=== PATIENT | female | born 1985 | race Caucasian/White ===

== ENCOUNTER 2022-07-02 15:06 | Outpatient (CLI) | payer OTHER | END 2022-07-02 16:35 | disposition home or self-care (01) | LOC: NST 15:06 | PROVIDERS: ATTEND Obstetrics & Gynecology | DX: Z34.83 Encounter for supervision of other normal pregnancy, third trimester (principal) ==

== ENCOUNTER 2022-07-20 11:15 | Inpatient (IN) | payer OTHER ==
[~2022-07-20] VITALS: Ht 152.4 cm; Wt 68.9 kg
[2022-07-20] MEDS ORDERED: LOVENOX40 MG/0.4 SUBCUTANEO (13:01)
[2022-07-20] MEDS ORDERED: OBTREX DHA COM1 EACH PO (13:02)
== END 2022-07-26 16:12 | disposition home or self-care (01) | DRG 788 ==
LOC: EDSTATUS 11:15 → SURH 07-22 08:30 → O/R 07-24 12:21 → OB/GYN 07-24 12:21
PROVIDERS: ADMIT Obstetrics & Gynecology; ATTEND Obstetrics & Gynecology
PROC: 4A1HXCZ Monitoring of Products of Conception, Cardiac Rate, External Approach (ICD-10-PCS; 2022-07-24)
PROC: 10D00Z1 Extraction of Products of Conception, Low, Open Approach (ICD-10-PCS; principal; 2022-07-24 10:00)
DX: O34.211 Maternal care for low transverse scar from previous cesarean delivery (principal); Z3A.39 39 weeks gestation of pregnancy; Z37.0 Single live birth; Z20.822 Contact with and (suspected) exposure to COVID-19